=== PATIENT | female | born 1970 | race Caucasian/White ===

== ENCOUNTER → 2020-09-02 | Outpatient (CLI) | payer OTHER | LOC: EXRD 10:08 | DX: K76.0 Fatty (change of) liver, not elsewhere classified (principal) | CPT/HCPCS: 76700 ==

== ENCOUNTER → 2021-09-09 | Outpatient (CLI) | payer BC | LOC: EXRD 10:07 | DX: K76.0 Fatty (change of) liver, not elsewhere classified (principal); Z90.49 Acquired absence of other specified parts of digestive tract; N28.1 Cyst of kidney, acquired | CPT/HCPCS: 76700 ==

== ENCOUNTER → 2022-03-23 | Outpatient (CLI) | payer BC | LOC: EXRD 09:00 | DX: N28.1 Cyst of kidney, acquired (principal) | CPT/HCPCS: 76700 ==